=== PATIENT | male | born 1975 | race Two or more races ===

== ENCOUNTER 2023-02-26 17:15 | Emergency (ER) | payer MEDICAID ==
[~2023-02-26] VITALS: Ht 167.6 cm; Wt 99.8 kg
[2023-02-26 17:32] VITALS: BP 140/90; TEMP 98; O2SAT 96
[2023-02-26] MEDS ORDERED: CIPR7.5D9 LEFT EAR (19:12)
== END 2023-02-26 19:21 | disposition home or self-care (01) ==
LOC: ER 17:23
DX: H60.92 Unspecified otitis externa, left ear (principal); Z60.2 Problems related to living alone